=== PATIENT | female | born 1980 | race Caucasian/White ===

== ENCOUNTER 2018-12-16 14:44 | Emergency (ER) | payer OTHER ==
[2018-12-16] MEDS ORDERED: Sodium Chloride 0.9% 10 ML Syringe FLUSH PRN (14:50)
[2018-12-16] MEDS ORDERED: Ondansetron 4 MG/2 ML SDV IVPUSH ONE ×2 (14:52→15:46)
[2018-12-16] MEDS ORDERED: HYDROmorphone 1 MG/ML Syringe IVPUSH ONE ×2 (14:55→15:27)
[2018-12-16] MEDS ORDERED: Sodium Chloride 0.9% 1,000 ML IV ONE (15:08)
--- NOTE | 2018-12-16 15:26 | EDM.PDOC ---
ED HPI GENERAL MEDICAL PROBLEM - General Chief Complaint: Abdominal Pain Stated Complaint: abd/pelvic pain, vomiting Time Seen by Provider: 12/16/18 15:00 Source of Information: Reports: Patient History Limitations: Reports: No Limitations - History of Present Illness INITIAL COMMENTS - FREE TEXT/NARRATIVE: Patient comes into the emergency department with complains of lower abdominal discomfort. Patient states that she has had on and off abdominal discomfort last 2-3 days however the pain and discomfort came on abruptly this morning again and has been consistent ever since then. She states that she became nauseated and vomited multiple times. Her severe cramping sensation and throbbing pain in the lower abdominal cavity. She does have a history of ulcerative colitis and ovarian cysts. He does not feel the discomfort is related or similar to her past episodes. Denies any fever, chest pain, shortness of breath, or lower extremity edema. She denies any makes the symptoms worse or better. She also denies any new sexual partners, vaginal discharge or foul smelling discharge. She also denies any changes in her menstrual cycle. Her last menstrual cycle was 2 weeks ago. Onset: Sudden Quality: Reports: Sharp, Stabbing, Throbbing Severity: Severe Improves with: Reports: None Worsens with: Reports: None left lower quad abd/pelvis Pain Score (Numeric/FACES): 9 - Related Data Allergies Allergy/AdvReac Type Severity Reaction Status Date / Time No Known Allergies Allergy Verified 12/16/18 15:00 Home Meds: Home Meds Vedolizumab [Entyvio] 300 mg IV ASDIRECTED 02/04/16 [History] Mesalamine W/Cleansing Wipes [[place] Enema Kit] 4 gm RC BEDTIME 07/06/16 [ History] Calcium Carbonate [Calcium] 500 mg PO DAILY 04/04/18 [History] Multivitamin [One Daily] 1 each PO DAILY 04/04/18 [History] Past Medical History Gastrointestinal History: Reports: Other (See Below) Other Gastrointestinal History: Ulcerative Colitis Genitourinary History: Reports: Other (See Below) Other Genitourinary History: UTI EARLY CHILDHOOD EDUCATION COORDINATOR History: Reports: Other EARLY CHILDHOOD EDUCATION COORDINATOR History: Para 4, Gr 3, hemorrhage Psychiatric History: Reports: Anxiety, Depression Hematologic History: Reports: Anemia - Infectious Disease History Infectious Disease History: Reports: Chicken Pox, Other (See Below) - Past Surgical History HEENT Surgical History: Reports: Other (See Below) GI Surgical History: Reports: Colonoscopy, EGD, Other (See Below) Social & Family History - Family History Family Medical History: Noncontributory - Tobacco Use Smoking Status *Q: Never Smoker - Caffeine Use Caffeine Use: Reports: None - Recreational Drug Use Recreational Drug Use: No ED ROS GENERAL - Review of Systems Review Of Systems: ROS reveals no pertinent complaints other than HPI. Constitutional: Reports: No Symptoms HEENT: Reports: No Symptoms Respiratory: Reports: No Symptoms Cardiovascular: Reports: No Symptoms Endocrine: Reports: No Symptoms : Reports: No Symptoms Musculoskeletal: Reports: No Symptoms Skin: Reports: No Symptoms Neurological: Reports: No Symptoms Psychiatric: Reports: No Symptoms Hematologic/Lymphatic: Reports: No Symptoms ED EXAM, GENERAL - Physical Exam Exam: See Below Exam Limited By: No Limitations General Appearance: Alert, WD/WN, No Apparent Distress Head: Atraumatic, Normocephalic Neck: Normal Inspection, Supple, Non-Tender, Full Range of Motion Respiratory/Chest: No Respiratory Distress, Lungs Clear, Normal Breath Sounds, No Accessory Muscle Use, Chest Non-Tender Cardiovascular: Normal Peripheral Pulses, Regular Rate, Rhythm, No Edema, No Murmur GI/Abdominal: Guarding, Rebound, Tender. No: Distended, Rigid, Abnormal Bowel Sounds, Mass, Hepatomegaly, Splenomegaly Back Exam: Normal Inspection, Full Range of Motion Extremities: Normal Inspection, Normal Range of Motion, Non-Tender, No Pedal Edema, Normal Capillary Refill Neurological: Alert, Oriented, Normal Gait Psychiatric: Normal Affect, Normal Mood Skin Exam: Pallor Course - Vital Signs Last Recorded V/S: Last Vital Signs Temp 35.7 C 12/16/18 14:47 Pulse 68 12/16/18 16:50 Resp 16 12/16/18 16:50 BP 115/77 12/16/18 16:50 Pulse Ox 98 12/16/18 16:50 - Orders/Labs/Meds Orders: Active Orders 24 hr Category Date Time Status Sodium Chloride 0.9% [Saline Flush] Med 12/16/18 14:50 Active 10 ml FLUSH ASDIRECTED PRN Saline Lock Insert [OM.PC] Routine Oth 12/16/18 14:50 Ordered Medication Orders Sodium Chloride (Saline Flush) 10 ml FLUSH ASDIRECTED PRN PRN Reason: Keep Vein Open Labs: Laboratory Tests 12/16/18 12/16/18 12/16/18 Range/Units 15:00 15:00 15:00 WBC 5.4 (4.0-10.0) x10^3/uL RBC 4.73 (4.00-5.50) x10^6/uL Hgb 13.9 (12.0-16.0) g/dL Hct 41.4 (33.0-47.0) % MCV 87.5 (78.0-93.0) fL MCH 29.4 (26.0-32.0) pg MCHC 33.6 (32.0-36.0) g/dL RDW Coeff of [place] 12.7 (10.0-15.0) % Plt Count 148 (130-400) x10^3/uL Neut % (Auto) 70.8 (50.0-80.0) % Lymph % (Auto) 21.1 L (25.0-50.0) % [place] % (Auto) 7.2 (2.0-11.0) % Eos % (Auto) 0.7 (0.0-4.0) % Baso % (Auto) 0.2 (0.2-1.2) % Sodium 143 (69-191) mmol/L Potassium 3.2 L (1.5-9.9) mmol/L Chloride 105 (54-184) mmol/L Carbon Dioxide 25 (21-32) mmol/L Anion Gap 16.2 (10-20) mmol/L BUN 6 L (7-18) mg/dL Creatinine 1.0 (0.55-1.02) mg/dL Est Cr Clr Drug Dosing 64.33 mL/min Estimated GFR (MDRD) > 60 Glucose 98 (74-106) mg/dL Calcium 8.4 L (8.5-10.1) mg/dL Corrected Calcium 8.32 L (8.5-10.1) mg/dL Total Bilirubin 0.4 (0.2-1.0) mg/dL AST 13 L (15-37) U/L ALT 13 L (14-59) U/L Alkaline Phosphatase 51 (46-116) U/L Total Protein 7.9 (6.4-8.2) g/dL Albumin 4.1 (3.4-5.0) g/dL Globulin 3.8 Albumin/Globulin Ratio 1.08 Amylase 83 (25-115) U/L Lipase 71 L (73-393) U/L Meds: Medications Generic Name Dose Route Start Last Admin Trade Name Freq PRN Reason Stop Dose Admin Sodium Chloride 10 ml 12/16/18 14:50 Saline Flush FLUSH ASDIRECTED PRN Keep Vein Open Discontinued Medications Generic Name Dose Route Start Last Admin Trade Name Freq PRN Reason Stop Dose Admin Fentanyl 25 mcg 12/16/18 15:46 12/16/18 15:50 Sublimaze IVPUSH 12/16/18 15:47 25 mcg NOW STA Administration Fentanyl 25 mcg 12/16/18 16:59 Sublimaze IVPUSH 12/16/18 17:00 NOW STA Hydromorphone HCl 0.5 mg 12/16/18 14:55 12/16/18 15:07 Dilaudid IVPUSH 12/16/18 14:56 0.5 mg ONETIME ONE Administration Hydromorphone HCl 0.5 mg 12/16/18 15:27 12/16/18 15:27 Dilaudid IVPUSH 12/16/18 15:28 0.5 mg ONETIME ONE Administration Sodium Chloride 1,000 mls @ 999 mls/hr 12/16/18 15:08 12/16/18 15:09 Normal Saline IV 12/16/18 16:08 999 mls/hr ONETIME ONE Administration Ondansetron HCl 4 mg 12/16/18 14:52 12/16/18 15:05 Zofran IVPUSH 12/16/18 14:53 4 mg ONETIME ONE Administration Ondansetron HCl 4 mg 12/16/18 15:46 12/16/18 15:56 Zofran IVPUSH 12/16/18 15:47 4 mg ONETIME ONE Administration Departure - Departure Time of Disposition: 17:30 Disposition: DC/Tfer to Acute Hospital 02 Condition: Good Clinical Impression: Abdominal pain Qualifiers: Abdominal location: left lower quadrant Qualified Code(s): R10.32 - Left lower quadrant pain Ovarian cyst Qualifiers: Laterality: unspecified laterality Qualified Code(s): N83.209 - Unspecified ovarian cyst, unspecified side - Discharge Information *PRESCRIPTION DRUG MONITORING PROGRAM REVIEWED*: Not Applicable *COPY OF PRESCRIPTION DRUG MONITORING REPORT IN PATIENT ETHEL: Not Applicable Referrals: Ellen Anglin NP [Primary Care Provider] - Forms: Interfacility Transfer EMTALA - My Orders Last 24 Hours: My Active Orders 12/16/18 14:50 Sodium Chloride 0.9% [Saline Flush] 10 ml FLUSH ASDIRECTED PRN Saline Lock Insert [OM.PC] Routine - Assessment/Plan Last 24 Hours: My Active Orders 12/16/18 14:50 Sodium Chloride 0.9% [Saline Flush] 10 ml FLUSH ASDIRECTED PRN Saline Lock Insert [OM.PC] Routine Assessment:: 1. Abdominal pain 2. Ovarian cyst 3. Nausea Plan: 1. Labs completed in the ER. Results reviewed with patient 2. CT scan completed in ER. Results reviewed with patient 3. IV initiated with IV fluids given in the ER 4. Dilaudid 0.5 mg given in the ER. Repeat of 0.5 mg Dilaudid given in ER for no relief of discomfort and pain. 5. 4 mg Zofran IV given in the ER 6. 50mcg fentanyl given 7. [facility] was contacted at 1615 regarding possible admission. General surgery was contacted and stated that the surgical services that are required at this time are for EARLY CHILDHOOD EDUCATION COORDINATOR and possibly an oncologist related to radiologist's hepatic and splenic mass for further evaluation. EARLY CHILDHOOD EDUCATION COORDINATOR on-call was contacted however she did not review the images initially stated that the patient be better served at [facility] for if there is an possibility of cancer. She needs to be at a facility that can offer surgical services and oncology at the same time if warranted 8. [facility] was contacted regarding the patient. They were provided information regarding [facility] EARLY CHILDHOOD EDUCATION COORDINATOR and general surgeons recommendations. Dr. Darnell oncologist EARLY CHILDHOOD EDUCATION COORDINATOR reviewed the images with the provider and felt that the acute abdomen is related to a possible torsion cyst on the ovary and operative intervention is required. Current images that she is reviewing she cannot see any concern of cancerous lesions at this time frame. She would recommend to the nearest facility surgical intervention. 9. While calling [facility] Dr. Andrade was contacted regarding the case who agrees he feels that acute concern is related to the ovarian cyst possible torsion. He recommends this patient coming to [facility] for further evaluation by EARLY CHILDHOOD EDUCATION COORDINATOR services and surgical consultation regarding the cyst. He states at that point if further services are rendered or a suspicion of cancerous lesions are noted they can address. Concerns at that time. Images he reviews at this time he does not feel either of those masses that were found on the CT results are cancerous at this time frame he did say further testing and scanning is recommended 10. Patient will be transferred to the emergency department under Dr. Salinas for emergent surgical consultation regarding the ovarian cysts and acute abdominal discomfort despite analgesia and antinausea medications. 11. Family and patient updated and all concerns and questions were answered.
[2018-12-16 15:36] LABS: CHLORIDE,CL 105 mmol/L (54-184); SODIUM,NA 143 mmol/L (69-191)
[2018-12-16 15:37] LABS: ANION GAP 16.2 mmol/L (10-20)
[2018-12-16] MEDS ORDERED: fentaNYL 100 MCG/2 ML SDV IVPUSH STA ×3 (15:46→18:05)
--- NOTE | 2018-12-16 15:56 | CT ---
[id number] CT/CT Abdomen Pelvis WO IV EXAM: CT Abdomen Pelvis WO IV CLINICAL DATA: ABDOMINAL/PELVIC PAIN, VOMITING. COMPARISON STUDY: None. FINDINGS: 10 x 13 mm hypodense lesion in the lateral left hepatic lobe (series 2 image 16). No other focal hepatic abnormality. Gallbladder, pancreas, and adrenal glands are unremarkable. Peripherally calcified hypodense splenic mass measuring 17 mm in diameter. Kidneys demonstrate hyperdense medullary pyramids, nonspecific but can be seen with early changes of medullary calcinosis. 63 x 78 x 58 mm cystic left adnexal mass. Uterus and adnexal regions are otherwise unremarkable. No lymphadenopathy in the abdomen or pelvis. Trace amount of free fluid the pelvis, within normal physiologic limits for reproductive age female. Appendix is normal. No small bowel obstruction or inflammation. IMPRESSION: 78 mm cystic left adnexal mass. No radiographic evidence of torsion at this time. However in the setting of pelvic pain, consider surgical consultation for further evaluation. 13 mm lateral left hepatic lobe hypodense mass. Additionally there is a peripherally calcified hypodense splenic mass. These are incompletely evaluated because of no contrast material. Additional evaluation recommended. Reinaldo Hodge MD 12/16/18 [id number] Thank you for allowing us to participate in the care of your patient.
[2018-12-16 16:51] VITALS: BP 115/77; PULSE 68
== END 2018-12-16 18:10 | disposition short-term general hospital (02) ==
LOC: VM.ED 14:44
DX: N83.202 Unspecified ovarian cyst, left side (principal); K51.90 Ulcerative colitis, unspecified, without complications; Z79.899 Other long term (current) drug therapy
CPT/HCPCS: 74176; 80053; 82150; 83690; 85025; 96361; 96374; 96375; 96376; 99285-25; J1170; J2405; J3010; J7030